=== PATIENT | female | born 1940 | race Caucasian/White ===

== ENCOUNTER 2020-01-11 14:31 | Emergency (ER) | payer MEDICARE, OTHER ==
[2020-01-11 15:24] LABS: BASOPHILS % (AUTO) 0.6 %; EOSINOPHILS # (AUTO) 0.4 10^3/uL (0.0-0.7); EOSINOPHILS % (AUTO) 6.6 %; HGB - HEMOGLOBIN 12.7 g/dL (12.0-16.0); LYMPHOCYTES # (AUTO) 2.4 10^3/uL (1.5-3.5); LYMPHOCYTES % (AUTO) 37.3 %; MEAN CORPUSCULAR HEMOGLOBIN 29.1 pg (27.0-31.0); MEAN CORPUSCULAR HGB CONC 32.7 g/dL (32.0-36.0); MEAN CORPUSCULAR VOLUME 88.8 fL (81.0-99.0); MEAN PLATELET VOLUME 9.3 fL (7.9-10.8); MONOCYTES # (AUTO) 0.6 10^3/uL (0.0-1.0); MONOCYTES % (AUTO) 8.9 %; NEUTROPHILS % (AUTO) 46.4 %; PLT - PLATELET COUNT 254 10^3/uL (130-450); RED BLOOD COUNT 4.37 10^6/uL (4.20-5.40); RED CELL DISTRIBUTION WIDTH 14.2 % (12.0-15.0); WHITE BLOOD COUNT 6.4 x10^3/uL (4.8-10.8)
[2020-01-11 15:44] LABS: ALBUMIN 4.1 g/dL (3.2-5.5); ALBUMIN/GLOBULIN RATIO 1.3 (1.0-2.2); CALCIUM 8.7 mg/dL (8.5-10.3); CREATININE 1.1 mg/dL (0.4-1.0); MAGNESIUM 2.1 mg/dL (1.7-2.8); PHOSPHORUS 3.9 mg/dL (2.5-4.6); TOTAL PROTEIN 7.3 g/dL (6.7-8.2)
[2020-01-11] MEDS ORDERED: CARBAMIDE PEROXIDE 6.5% OTIC DROPS LEFTEAR STA (15:50)
[2020-01-11 15:59] LABS: THYROID STIMULATING HORMONE 2.51 uIU/mL (0.34-5.60)
--- NOTE | 2020-01-11 17:20 | ED Physician Documentation ---
PD HPI FOCAL NEURO - Stated complaint Stated Complaint: STROKE LIKE SYMPTOMS - Chief complaint Chief Complaint: General - History obtained from History obtained from: Patient - History of Present Illness Timing - onset: Today (patient went to walk in clinic in [place] due to complaint of left ear plugging and discomfort. provider there concerned about some facial drooping on left and noted BP elevated, so referred her to ER for evaluation. Patient did not feel that she had facial nor extremity weakness nor her SO.) Timing - duration: Days (1-2 days of left ear feeling plugged/pressure.) Timing - details: Gradual onset Severity of deficit: Mild Weakness: No: Face, Arm, Leg Numbness: No: Face, Arm, Leg Associated symptoms: No: Headache, Nausea / vomiting, Fall, Head injury Contributing factors: negative: Anticoagulated, Vascular dz, Atrial fibrillation Baseline status: positive: A&OX3, ambulatory, indep Similar symptoms before: Has not had sx before Recently seen: Clinic (today [employer], and referred to ER.) Review of Systems Constitutional: denies: Fever, Chills Ears: reports: Loss of hearing. denies: Drainage/discharge Nose: denies: Rhinorrhea / runny nose, Congestion Throat: denies: Sore throat Cardiac: denies: Chest pain / pressure Respiratory: denies: Dyspnea, Cough GI: denies: Nausea, Vomiting, Diarrhea Musculoskeletal: denies: Neck pain, Back pain Neurologic: reports: Other (left arm with resting tremor for months; is lessens with activity or if she concentrates, otherwise regular tremoring at rest. Only the left arm/hand.). denies: Focal weakness, Numbness, Confused, Altered mental status, Headache Endocrine: denies: Weight loss Immunocompromised: reports: Chemotherapy (Pamela for arthritis). denies: Immunocompromised PD PAST MEDICAL HISTORY - Past Medical History Past Medical History: Yes Respiratory: None Neuro: Other (left arm tremoring at rest for many months. ) Endocrine/Autoimmune: None Psych: Depression Musculoskeletal: Rheumatoid arthritis - Allergies Allergies/Adverse Reactions: Allergies Allergy/AdvReac Type Severity Reaction Status Date / Time Sulfa (Sulfonamide Allergy Unknown Verified 01/11/20 14:42 Antibiotics) - Living Situation Living Situation: reports: With spouse/s.o. Living Arrangement: reports: At home - Social History Does the pt smoke?: No Does the pt drink ETOH?: No Does the pt have substance abuse?: No - Family History Family history: reports: Non contributory PD ED PE NORMAL - Vitals Vital signs reviewed: Yes - General General: Alert and oriented X 3, No acute distress, Well developed/nourished - HEENT HEENT: PERRL, EOMI, Pharynx benign, Other (I do not appreciate a facial droop and she can puff cheeks well and strongly. ). No: Ears normal (right is normal. Left with earwax occluding the canal. Repeat view of ear after nursing irrigation of it, showed normal canal and TM. She can hear better. ) - Neck Neck: Supple, no meningeal sign, No adenopathy, No bruit - Cardiac Cardiac: RRR - Respiratory Respiratory: Clear bilaterally - Abdomen Abdomen: Soft, Non tender - Back Back: No CVA TTP - Derm Derm: Normal color, Warm and dry - Extremities Extremities: No edema, No calf tenderness / cord, Other (left arm/hand with moderate tremoring that decreases/stops when she actively uses it or thinks about holding it still. No edema. ) - Neuro Neuro: Alert and oriented X 3, roaster helper 2-12 intact, No motor deficit, No sensory deficit, Normal speech Eye Opening: Spontaneous Motor: Obeys Commands Verbal: Oriented GCS Score: 15 NIHSS - Level of Consciousness Level of consciousness: (0) Alert, Keenly responsive LOC Questions: (0) Answers both Q's correct LOC Commands: (0) Performs both correctly - Gaze Best Gaze: (0) Normal - Visual Visual: (0) No loss - Facial Palsy Facial Palsy: (0) Normal, symmetrical movement - Motor Arms (both separate) Motor Arm (right): (0) No drift Motor Arm (left): (0) No drift - Motor Legs (both separate) Motor Leg (right): (0) No drift Motor Leg (left): (0) No drift - Limb Ataxia Limb Ataxia: (0) Absent - Sensory Sensory: (0) Normal - Best Language Best Language: (0) No aphasia - Dysarthria Dysarthria: (0) Normal - Extinction and Inattention (formally neg Extinction and inattention: (0) No abnormality - Total Score/Results Total Score/Result: 0 Results - Vitals Vitals: Vital Signs - 24 hr 01/11/20 01/11/20 14:42 17:37 Temperature 36.5 C 37.2 C Heart Rate 74 84 Respiratory 18 16 Rate Blood Pressure 153/110 H 154/98 H O2 Saturation 98 99 Oxygen O2 Source Room air - Labs Labs: Laboratory Tests 01/11/20 01/11/20 01/11/20 14:38 15:17 15:17 WBC 6.4 RBC 4.37 Hgb 12.7 Hct 38.8 MCV 88.8 MCH 29.1 MCHC 32.7 RDW 14.2 Plt Count 254 MPV 9.3 Neut # (Auto) 3.0 Lymph # (Auto) 2.4 [place] # (Auto) 0.6 Eos # (Auto) 0.4 Baso # (Auto) 0.0 Absolute Nucleated RBC 0.00 Nucleated RBC % 0.0 Sodium 138 Potassium 3.8 Chloride 101 Carbon Dioxide 27 Anion Gap 10.0 BUN 15 Creatinine 1.1 H Estimated GFR (MDRD) 48 L Glucose 95 POC Whole Bld Glucose 93 Calcium 8.7 Phosphorus 3.9 Magnesium 2.1 Total Bilirubin 1.0 AST 17 ALT 14 Alkaline Phosphatase 46 Total Protein 7.3 Albumin 4.1 Globulin 3.2 Albumin/Globulin Ratio 1.3 Lipase 49 Vitamin B12 TSH 01/11/20 15:17 WBC RBC Hgb Hct MCV MCH MCHC RDW Plt Count MPV Neut # (Auto) Lymph # (Auto) [place] # (Auto) Eos # (Auto) Baso # (Auto) Absolute Nucleated RBC Nucleated RBC % Sodium Potassium Chloride Carbon Dioxide Anion Gap BUN Creatinine Estimated GFR (MDRD) Glucose POC Whole Bld Glucose Calcium Phosphorus Magnesium Total Bilirubin AST ALT Alkaline Phosphatase Total Protein Albumin Globulin Albumin/Globulin Ratio Lipase Vitamin B12 231 TSH 2.51 PD MEDICAL DECISION MAKING - ED course Complexity details: considered differential (I do not see facial weakness here and her SO did not notice it here nor at clinic earlier.), d/w patient ED course: not clear the cause of arm tremor she has had for months. Consider med side effect from SSRI. Or just essential tremor. Or other cause. Basic lytes are good. I do not note facial droop here nor other weakness. Will defer work up. To see if she develops some facial weakness in next 1-2 days, to consider Benites Palsy or such. Departure - Departure Disposition: 01 Home, Self Care Clinical Impression: Tremor Cerumen impaction Qualifiers: Laterality: left Qualified Code(s): H61.22 - Impacted cerumen, left ear Condition: Stable Record reviewed to determine appropriate education?: Yes Follow-Up: Kash Lopez PA-C [Primary Care Provider] - Comments: Your basic blood tests appear normal here. I have included copies of your results. Follow-up with your primary care regarding any further evaluation of the arm tremor. It may possibly be a side effect of your antidepressant medicine but hard to say for sure. Regarding the face, see if there is any progressive weakness that develops over the next day or 2 that might suggest a Benites's palsy. At this point no acute intervention. Discharge Date/Time: 01/11/20 17:37
[2020-01-11 17:37] VITALS: BP 154/98
== END 2020-01-11 17:37 | disposition home or self-care (01) ==
LOC: ED 14:31
DX: H61.22 Impacted cerumen, left ear (principal); R25.1 Tremor, unspecified; I49.1 Atrial premature depolarization; R03.0 Elevated blood-pressure reading, without diagnosis of hypertension
CPT/HCPCS: 36415; 80053; 82607; 83690; 83735; 84100; 84443; 85025; 99283; 99284

== ENCOUNTER 2021-01-24 08:00 | Outpatient (CLI) | payer MEDICARE, OTHER ==
--- NOTE | 2021-01-24 16:54 | XRAY Report ---
PROCEDURE: Tib/Fib LT INDICATIONS: CONTUSION OF LEFT LOWER LEG TECHNIQUE: 2 views of the tibia and fibula were acquired. COMPARISON: None FINDINGS: Bones: No fractures or dislocations. No suspicious bony lesions. Soft tissues: No suspicious soft tissue calcifications or masses. IMPRESSION: Normal left tibia and fibula. Reviewed by: Je Sandy on 01/24/2021 4:52 PM PDT Approved by: Je Sandy on 01/24/2021 4:52 PM PDT Station ID: [id number]
[2021-01-24 20:08] LABS: BASOPHILS # (AUTO) 0.1 10^3/uL (0.0-0.1); EOSINOPHILS # (AUTO) 0.4 10^3/uL (0.0-0.7); EOSINOPHILS % (AUTO) 5.6 %; HGB - HEMOGLOBIN 11.2 g/dL (12.0-16.0); LYMPHOCYTES # (AUTO) 2.6 10^3/uL (1.5-3.5); LYMPHOCYTES % (AUTO) 35.5 %; MEAN CORPUSCULAR HEMOGLOBIN 28.9 pg (27.0-31.0); MEAN CORPUSCULAR VOLUME 90.4 fL (81.0-99.0); MEAN PLATELET VOLUME 10.7 fL (7.9-10.8); MONOCYTES # (AUTO) 0.7 10^3/uL (0.0-1.0); MONOCYTES % (AUTO) 9.6 %; NEUTROPHILS # (AUTO) 3.5 10^3/uL (1.5-6.6); PLT - PLATELET COUNT 295 10^3/uL (130-450); RED BLOOD COUNT 3.87 10^6/uL (4.20-5.40); RED CELL DISTRIBUTION WIDTH 13.8 % (12.0-15.0); WHITE BLOOD COUNT 7.3 x10^3/uL (4.8-10.8)
[2021-01-24 20:19] LABS: CALCIUM 9.1 mg/dL (8.5-10.3); POTASSIUM 3.8 mmol/L (3.5-5.0)
== END 2021-01-24 23:59 | disposition home or self-care (01) ==
LOC: DI.S 08:00
PROVIDERS: ATTEND Emergency Medicine
DX: S80.12XA Contusion of left lower leg, initial encounter (principal); R60.0 Localized edema
CPT/HCPCS: 36415; 80048; 85025; 85379

== ENCOUNTER 2021-01-26 11:33 | Outpatient (CLI) | payer MEDICARE, OTHER ==
--- NOTE | 2021-01-26 13:37 | Ultrasound Report ---
PROCEDURE: Duplex Ext Veins Left INDICATIONS: EDEMA OF CALF TECHNIQUE: Real-time imaging, as well as color and pulse Doppler interrogation, were performed of the lower extr emity deep veins from the inguinal ligament to the popliteal fossa. COMPARISON: None. FINDINGS: The deep veins are normally compressible, and free of intraluminal thrombus. Color and pu lse Doppler demonstrate normal phasic intraluminal flow. There is normal augmentation response to di stal compression maneuver. IMPRESSION: No deep venous thrombosis. Reviewed by: Flores Chase MD on 01/26/2021 1:35 PM PDT Approved by: Flores Chase MD on 01/26/2021 1:35 PM PDT Station ID: [id number]
== END 2021-01-26 11:34 | disposition home or self-care (01) ==
LOC: DI 11:33
PROVIDERS: ATTEND Emergency Medicine
DX: S80.12XA Contusion of left lower leg, initial encounter (principal); R60.0 Localized edema

== ENCOUNTER 2021-02-27 10:45 | Outpatient (CLI) | payer MEDICARE, OTHER | END 2021-02-27 10:46 | disposition home or self-care (01) | LOC: LAB.S 10:45 | PROVIDERS: ATTEND Internal Medicine | DX: R60.0 Localized edema (principal) | CPT/HCPCS: 36415; 83880; 85379; 85651 ==

== ENCOUNTER 2021-03-17 11:04 | Outpatient (CLI) | payer MEDICARE, OTHER ==
--- NOTE | 2021-03-17 12:47 | Ultrasound Report ---
PROCEDURE: Abdomen Complete INDICATIONS: ABD BLOATING TECHNIQUE: Real-time scanning was performed of the abdominal and retroperitoneal organs, with image documentatio n. COMPARISON: None. FINDINGS: Liver: Liver is normal in size and homogeneous in echotexture. Gallbladder: Unremarkable. Biliary ducts: Intrahepatic bile ducts are non-dilated. Common bile duct measures 3 mm, within yenny l limits. Pancreas: Visualized portions of the pancreas are sonographically normal. Spleen: Spleen is normal in size and homogeneous in echotexture. Kidneys: Kidneys are normal in size and echotexture. Right kidney measures 8.9 cm long; left kidney measures 9.8 cm long. No hydronephrosis or nephrolithiasis. No solid masses. Right renal cortical thickness of 9 mm. Left renal cortical thickness of 9 mm. Aorta: Visualized aorta is normal in caliber at less than 3 cm. Calcific atherosclerosis seen throu ghout the visualized aorta. Iliacs: Proximal common iliac arteries are normal in caliber at less than 2.5 cm. IVC: Intrahepatic inferior vena cava is patent. Miscellaneous: No free abdominal fluid. IMPRESSION: 1. No acute intra-abdominal abnormality. 2. Mild atrophic changes of the kidneys. Reviewed by: Benedicto Youngblood on 03/17/2021 11:46 AM [facility] Approved by: Benedicto Youngblood on 03/17/2021 11:46 AM [facility] Station ID: [id number]
== END 2021-03-17 11:05 | disposition home or self-care (01) ==
LOC: DI 11:04
PROVIDERS: ATTEND Internal Medicine
DX: R14.0 Abdominal distension (gaseous) (principal); N26.1 Atrophy of kidney (terminal)

== ENCOUNTER 2021-03-28 14:52 | Outpatient (CLI) | payer MEDICARE, OTHER ==
[2021-03-28 20:32] LABS: CREATININE 1.3 mg/dL (0.4-1.0)
== END 2021-03-28 14:53 | disposition home or self-care (01) ==
LOC: LAB.S 14:52
PROVIDERS: ATTEND Internal Medicine
DX: R14.0 Abdominal distension (gaseous) (principal); R60.0 Localized edema
CPT/HCPCS: 36415; 82565

== ENCOUNTER 2021-04-04 13:47 | Outpatient (CLI) | payer MEDICARE, OTHER ==
[2021-04-04] MEDS ORDERED: IOPAMIDOL-300 100 ML VIAL ONE (14:08)
[2021-04-04] MEDS ORDERED: IOVERSOL 320 50 ML VIAL ONE (14:08)
--- NOTE | 2021-04-04 16:46 | CT Report ---
PROCEDURE: Abdomen/Pelvis W INDICATIONS: ABDOMINAL BLOATING CONTRAST: IV CONTRAST: Isovue 300 ml: 100 PO CONTRAST: Optiray 320 ml50 TECHNIQUE: After the administration of IV and oral contrast, 5 mm thick sections acquired from the diaphragms to the symphysis. 5 mm thick coronal and sagittal reformats were acquired. For radiation dose reducti on, the following was used: automated exposure control, adjustment of mA and/or kV according to sukh ent size. COMPARISON: Abdominal ultrasound dated 03/17/2021. FINDINGS: Image quality: Excellent. ABDOMEN: Lung bases: Bibasilar scarring/atelectasis are seen Heart size is normal. Solid organs: Liver and spleen are normal in size and enhancement. Gallbladder is within normal cavazos its Biliary system is non dilated. Pancreas enhances normally. No adrenal nodules. Kidneys demons trate normal size and enhancement, without hydronephrosis. Peritoneum and bowel: Bowel loops demonstrate normal wall thickness and caliber. No free fluid or a ir. Mild fecal stasis in the colon is seen. Appendix is visualized and is within normal limits. Nodes and vessels: No retroperitoneal or mesenteric adenopathy by size criteria. Aorta and inferior vena cava are normal in size. Mild to moderate atherosclerotic calcifications in the abdominal aort a is seen. Miscellaneous: No ventral hernias. PELVIS: Genitourinary: Bladder wall thickness is normal. Miscellaneous: No inguinal hernias or adenopathy. Densely calcified structure involving left lower pelvis is seen with mild mass effect on distal sigmoid colon and rectum and measures 4.4 x 3.1 x 3.3 cm in size and likely represented densely calcified uterine fibroid. Bones: No suspicious bony lesions. No vertebral body compression fractures. Minimal anterolisthesi s at L4-5 and L5-S1 levels are seen. Degenerative disc disease throughout lower thoracic and lumbar s pine is seen. IMPRESSION: 1. No bowel obstruction or abnormal bowel wall thickening. Normal appendix. Mild constipation. No preethi e fluid of free air. 2. Suggestion of densely calcified uterine fibroid. 3. No renal stone or hydronephrosis. Reviewed by: Mauricio Stratton MD on 04/04/2021 4:45 PM PDT Approved by: Mauricio Stratton MD on 04/04/2021 4:45 PM PDT Station ID: [id number]
[2021-04-04] MEDS ORDERED: IOPAMIDOL-300 100 ML VIAL IVP ONE (21:29)
[2021-04-04] MEDS ORDERED: IOVERSOL 320 50 ML VIAL PO ONE (21:29)
== END 2021-04-04 13:48 | disposition home or self-care (01) ==
LOC: DI 13:47
PROVIDERS: ATTEND Internal Medicine
DX: R14.0 Abdominal distension (gaseous) (principal); K59.00 Constipation, unspecified
CPT/HCPCS: 74177; Q9967

== ENCOUNTER 2022-07-03 09:13 | Outpatient (CLI) | payer MEDICARE, OTHER ==
[2022-07-03 14:21] LABS: BASOPHILS # (AUTO) 0.1 10^3/uL (0.0-0.1); BASOPHILS % (AUTO) 1.1 %; EOSINOPHILS # (AUTO) 0.4 10^3/uL (0.0-0.7); EOSINOPHILS % (AUTO) 4.4 %; HCT - HEMATOCRIT 39.9 % (37.0-47.0); HGB - HEMOGLOBIN 12.2 g/dL (12.0-16.0); LYMPHOCYTES % (AUTO) 37.4 %; MEAN CORPUSCULAR HEMOGLOBIN 28.4 pg (27.0-31.0); MEAN CORPUSCULAR HGB CONC 30.6 g/dL (32.0-36.0); MEAN CORPUSCULAR VOLUME 92.8 fL (81.0-99.0); MEAN PLATELET VOLUME 10.4 fL (7.9-10.8); MONOCYTES # (AUTO) 0.8 10^3/uL (0.0-1.0); MONOCYTES % (AUTO) 9.5 %; NEUTROPHILS # (AUTO) 3.8 10^3/uL (1.5-6.6); NEUTROPHILS % (AUTO) 47.3 %; PLT - PLATELET COUNT 326 10^3/uL (130-450); RED CELL DISTRIBUTION WIDTH 13.2 % (12.0-15.0)
[2022-07-03 14:45] LABS: ALBUMIN 3.7 g/dL (3.2-5.5); ALKALINE PHOSPHATASE 120 IU/L (42-121); ALT ALANINE AMINOTRANSFERASE < 10 IU/L (10-60); AST ASPARTATE AMINOTRANSFERASE 16 IU/L (10-42); BILIRUBIN,TOTAL 0.6 mg/dL (0.2-1.0); BUN - BLOOD UREA NITROGEN 23 mg/dL (6-20); CALCIUM 9.1 mg/dL (8.5-10.3); CARBON DIOXIDE - CO2 28 mmol/L (21-32); CHLORIDE 103 mmol/L (101-111); CREATININE 1.1 mg/dL (0.4-1.0); GFR - MDRD 48 (>89); GLUCOSE 102 mg/dL (70-100); POTASSIUM 3.8 mmol/L (3.5-5.0); SODIUM 138 mmol/L (135-145); TOTAL PROTEIN 7.5 g/dL (6.7-8.2)
[2022-07-03 15:00] LABS: CRP - C-REACTIVE PROTEIN < 1.0 mg/dL (0-1.0)
== END 2022-07-03 09:14 | disposition home or self-care (01) ==
LOC: LAB.S 09:13
PROVIDERS: ATTEND Internal Medicine Rheumatology
DX: M85.80 Other specified disorders of bone density and structure, unspecified site (principal)
CPT/HCPCS: 36415; 80053; 85025; 85651; 86140

== ENCOUNTER 2022-08-13 12:35 | Outpatient (CLI) | payer MEDICARE, OTHER ==
--- NOTE | 2022-08-13 16:32 | CT Report ---
PROCEDURE: LUMBAR SPINE WO INDICATIONS: ABN XRAY TECHNIQUE: Noncontrast 3 mm thick sections acquired from the T12 level to the sacrum. Sagittal and coronal refo rmats were constructed. For radiation dose reduction, the following was used: automated exposure co ntrol, adjustment of mA and/or kV according to patient size. COMPARISON: Correlation is made with prior abdomen pelvis CT, 04/04/2021. FINDINGS: Image quality: Excellent. Bones: No acute vertebral body compression fractures. No suspicious lytic or blastic bony lesions. Central spinal caliber is of normal overall caliber. No pars defects. Mild dextroconvex scoliotic curvature is seen. Minimal retrolisthesis is seen at L1-L2. T12-L1: Normal in appearance. L1-L2: Moderate loss of disc height is seen. Mild to moderate disc bulge is seen. Vacuum disc phe nomenon is seen at this level. There is at least moderate bilateral neuroforaminal narrowing seen. N o significant central canal narrowing is seen. L2-L3: Minimal loss of disc height is seen. Moderate disc bulge is seen, with a central disc protr usion. There is at least moderate bilateral neuroforaminal narrowing seen. At least moderate central canal narrowing is seen. L3-L4: Moderate loss of disc height is seen. At least moderate disc bulge is seen, with a central d isc protrusion. Mild vacuum disc phenomenon is seen. Mild to moderate facet hypertrophy is seen. Ther e is moderate right-sided and moderate to severe left-sided neuroforaminal narrowing. At least modera te central canal narrowing is seen, as on series 3 image 46. L4-L5: Moderate loss of disc height is seen. Mild to moderate disc bulge is seen. A superimposed ce ntral disc protrusion is seen. There is at least moderate facet hypertrophy. There is at least moder ate bilateral neuroforaminal narrowing seen. There is moderate central canal narrowing is seen, as on series 3 image 54. L5-S1: The disc height is relatively well preserved. Mild disc bulge is seen. Moderate facet hy pertrophy is seen. There is moderate right-sided and mild to moderate left-sided neuroforaminal narr owing. Mild to moderate central canal narrowing can be seen. Soft tissues: No retroperitoneal hematomas. Visualized aorta is normal in caliber. Atherosclerotic calcification is seen. A calcified lesion is again seen within the presacral region, which is attrib uted to a calcified uterine fibroid. Minimal distal colonic diverticulosis is seen, without active di verticulitis. IMPRESSION: Multiple levels of relatively prominent lumbar spine degenerative change can be seen. If it would be helpful for clinical management decision making, please consider a dedicated, schedule d lumbar MRI for further evaluation (assuming that there is no contraindication). Additional findings: Apparent calcified uterine fibroid Diverticulosis, without findings of active diverticulitis. Reviewed by: Evaristo Olivarez MD on 08/13/2022 3:30 PM [place] Approved by: Evaristo Olivarez MD on 08/13/2022 3:30 PM [facility] Station ID: [id number]
== END 2022-08-13 12:36 | disposition home or self-care (01) ==
LOC: DI 12:35
PROVIDERS: ATTEND Physician Assistant
DX: R93.7 Abnormal findings on diagnostic imaging of other parts of musculoskeletal system (principal); M47.816 Spondylosis without myelopathy or radiculopathy, lumbar region

== ENCOUNTER 2022-10-17 12:31 | Outpatient (CLI) | payer MEDICARE, OTHER ==
--- NOTE | 2022-10-17 16:11 | MRI Report ---
PROCEDURE: LUMBAR SPINE WO INDICATIONS: MONOPARESIS OF LOWER LIMB TECHNIQUE: Noncontrast sagittal T1 spin echo and T2 fast echo, sagittal STIR, axial T1 and T2 fast spin echo thr ough the lumbar spine. In cases with scoliosis, additional coronal T2 fast spin echo may be performe d. COMPARISON: None. FINDINGS: Image quality: Excellent. Alignment and Curvature: There is normal bony alignment. Bone Marrow: There is marrow edema present across the sacrum and a buckle fracture involving S2. Imag ing findings are consistent with a sacral insufficiency fracture. Clinical correlation is recommended . Spinal Cord: Conus medullaris terminates at the T12 level. Visualized cord demonstrates normal sign al and size. Paraspinous Soft Tissues: There is a 4.1 cm ovoid benign-appearing lipoma involving the subcutaneous tissues of the lower back. T12-L1: There is a mild diffuse disc bulge present. No significant central canal or neural foraminal stenosis. L1-L2: There is a mild diffuse disc bulge present causing some mild to moderate bilateral neural f oraminal stenosis. No central canal stenosis. L2-L3: There is a mild diffuse disc bulge present. This in conjunction with ligamentum flavum lynch ling and bilateral facet degenerative change causes a moderate degree of central canal stenosis. Ther e is also moderate to severe bilateral neural foraminal stenosis. L3-L4: There is a mild diffuse disc bulge present. There is moderate to severe bilateral neural for aminal stenosis and moderate central canal stenosis multifactorial origin. L4-L5: There is a [id number] size broad-based disc protrusion present. This causes moderate to severe bilateral neural foraminal stenosis and severe central canal stenosis multifactorial origin . L5-S1: There is a mild diffuse disc bulge present causing some moderate bilateral neural foraminal stenosis. No central canal stenosis. IMPRESSION: 1. Findings consistent with sacral insufficiency fracture with a buckle through the S2 segment and ma rrow edema throughout the sacrum. 2. Significant degenerative changes noted throughout the patient's lumbar spine as described above on a level by level basis with the L4-L5 level being most severely affected. 3. 4.1 cm benign-appearing lipoma in the subcutaneous tissues of the lower back to the left of midlin e. Reviewed by: Josh Church MD on 10/17/2022 4:09 PM PDT Approved by: Josh Church MD on 10/17/2022 4:09 PM PDT Station ID: [id number]
== END 2022-10-17 12:32 | disposition home or self-care (01) ==
LOC: DI 12:31
PROVIDERS: ATTEND Physician Assistant
DX: G83.11 Monoplegia of lower limb affecting right dominant side (principal); R93.7 Abnormal findings on diagnostic imaging of other parts of musculoskeletal system; D17.39 Benign lipomatous neoplasm of skin and subcutaneous tissue of other sites; M51.35 Other intervertebral disc degeneration, thoracolumbar region; M51.36 Other intervertebral disc degeneration, lumbar region; M48.061 Spinal stenosis, lumbar region without neurogenic claudication; M47.816 Spondylosis without myelopathy or radiculopathy, lumbar region; M51.37 Other intervertebral disc degeneration, lumbosacral region

== ENCOUNTER 2023-04-25 14:22 | Outpatient (CLI) | payer MEDICARE, OTHER ==
--- NOTE | 2023-04-25 16:46 | XRAY Report ---
PROCEDURE: Hips 2V BILAT INDICATIONS: STRESS FRACTURE TECHNIQUE: One view of the pelvis and one view of each hip is obtained. COMPARISON: None. FINDINGS: Bones: No fractures or dislocations. No suspicious bony lesions. Mild periarticular osteophyte fo rmation at the bilateral hip joints. Soft tissues: Calcification within the right pelvis spanning roughly 45 mm, consistent with uterine fibroid. IMPRESSION: 1. Bilateral hip osteoarthritis. 2. Uterine fibroid. 3. No acute fracture. No osseous lesion. If symptoms and/or clinical suspicion for pathology continue , further assessment with repeat plain films, or advanced imaging (e.g., CT, MRI, or bone scan) is re commended for further assessment. Reviewed by: Stephan Donaldson MD on 04/25/2023 4:44 PM PDT Approved by: Stephan Donaldson MD on 04/25/2023 4:44 PM PDT Station ID: [id number]
== END 2023-04-25 14:23 | disposition home or self-care (01) ==
LOC: DI.S 14:22
PROVIDERS: ATTEND Internal Medicine
DX: M84.359A Stress fracture, hip, unspecified, initial encounter for fracture (principal); M16.0 Bilateral primary osteoarthritis of hip; D25.9 Leiomyoma of uterus, unspecified

== ENCOUNTER 2023-08-13 11:42 | Outpatient (CLI) | payer MEDICARE, OTHER ==
--- NOTE | 2023-08-13 17:16 | XRAY Report ---
PROCEDURE: Ankle 3+V LT INDICATIONS: LEG EDEMA,LEFT TECHNIQUE: 3 views of the ankle were acquired. COMPARISON: None. FINDINGS: Bones: No fractures or dislocations. Ankle mortise is normally aligned. Mild midfoot and hindfoot joint osteophytic changes are seen. Well-defined plantar and dorsal calcaneal enthesophytes are seen. No suspicious bony lesions. Soft tissues: No tibiotalar joint effusion. Achilles tendon appears normal. IMPRESSION: No acute bony abnormality. Ankle mortise is congruent. Calcaneal enthesophyte. Mild midfoot and hindfoot joint osteoarthritis. Reviewed by: Mauricio Stratton MD on 08/13/2023 5:15 PM PST Approved by: Mauricio Stratton MD on 08/13/2023 5:15 PM PST Station ID: [id number]
--- NOTE | 2023-08-13 17:38 | XRAY Report ---
PROCEDURE: Foot 3+V LT INDICATIONS: LEG EDEMA,LEFT TECHNIQUE: 4 views of the foot were acquired. COMPARISON: None. FINDINGS: Bones: No fractures or dislocations. Moderate hallux valgus is seen. Lateral subluxation at third MT P joint is also noted. Osteoarthritic changes are noted throughout left foot most notably at first MT P joint. Well-defined plantar calcaneal enthesophyte is also seen. No gross bony erosive changes. No suspicious bony lesions. Soft tissues: No suspicious soft tissue calcifications or masses. IMPRESSION: Hallux valgus and lateral deviation at third MTP joint as above. No fracture or dislocation. No radio graphic evidence of osteomyelitis. Osteoarthritic changes throughout left foot. Calcaneal enthesophyt e. Reviewed by: Mauricio Stratton MD on 08/13/2023 5:37 PM PST Approved by: Mauricio Stratton MD on 08/13/2023 5:37 PM PST Station ID: [id number]
== END 2023-08-13 11:43 | disposition home or self-care (01) ==
LOC: DI.S 11:42
PROVIDERS: ATTEND Internal Medicine
DX: R60.0 Localized edema (principal); M20.12 Hallux valgus (acquired), left foot; M19.072 Primary osteoarthritis, left ankle and foot; M77.32 Calcaneal spur, left foot

== ENCOUNTER 2023-08-27 09:22 | Outpatient (CLI) | payer MEDICARE, OTHER ==
[2023-08-27 14:34] LABS: BASOPHILS # (AUTO) 0.1 10^3/uL (0.0-0.1); EOSINOPHILS # (AUTO) 0.4 10^3/uL (0.0-0.7); EOSINOPHILS % (AUTO) 4.8 %; HCT - HEMATOCRIT 39.9 % (37.0-47.0); HGB - HEMOGLOBIN 12.3 g/dL (12.0-16.0); LYMPHOCYTES # (AUTO) 2.4 10^3/uL (1.5-3.5); LYMPHOCYTES % (AUTO) 33.1 %; MEAN CORPUSCULAR HEMOGLOBIN 29.1 pg (27.0-31.0); MEAN CORPUSCULAR HGB CONC 30.8 g/dL (32.0-36.0); MEAN CORPUSCULAR VOLUME 94.5 fL (81.0-99.0); MEAN PLATELET VOLUME 10.9 fL (7.9-10.8); MONOCYTES # (AUTO) 0.6 10^3/uL (0.0-1.0); MONOCYTES % (AUTO) 8.8 %; NEUTROPHILS # (AUTO) 3.8 10^3/uL (1.5-6.6); NEUTROPHILS % (AUTO) 51.9 %; PLT - PLATELET COUNT 264 10^3/uL (130-450); RED BLOOD COUNT 4.22 10^6/uL (4.20-5.40); RED CELL DISTRIBUTION WIDTH 13.3 % (12.0-15.0); WHITE BLOOD COUNT 7.3 x10^3/uL (4.8-10.8)
[2023-08-27 15:39] LABS: ALBUMIN 4.1 g/dL (3.2-5.5); ALBUMIN/GLOBULIN RATIO 1.3 (1.0-2.2); ALKALINE PHOSPHATASE 56 IU/L (42-121); ALT ALANINE AMINOTRANSFERASE 11 IU/L (10-60); AST ASPARTATE AMINOTRANSFERASE 16 IU/L (10-42); BILIRUBIN,TOTAL 0.5 mg/dL (0.2-1.0); BUN - BLOOD UREA NITROGEN 19 mg/dL (6-20); CALCIUM 9.2 mg/dL (8.5-10.3); CARBON DIOXIDE - CO2 27 mmol/L (21-32); CHLORIDE 105 mmol/L (101-111); CRP - C-REACTIVE PROTEIN < 0.5 mg/dL (<0.5); GFR - MDRD 53 (>89); GLUCOSE 94 mg/dL (74-104); POTASSIUM 3.6 mmol/L (3.5-4.5); SODIUM 140 mmol/L (135-145); TOTAL PROTEIN 7.3 g/dL (6.4-8.9)
== END 2023-08-27 09:23 | disposition home or self-care (01) ==
LOC: LAB.S 09:22
PROVIDERS: ATTEND Family Medicine
DX: M06.9 Rheumatoid arthritis, unspecified (principal)
CPT/HCPCS: 36415; 80053; 85025; 85651; 86140

== ENCOUNTER 2024-03-05 08:01 | Outpatient (CLI) | payer MEDICARE, OTHER ==
[2024-03-05 14:49] LABS: HCT - HEMATOCRIT 39.4 % (37.0-47.0); MEAN CORPUSCULAR HEMOGLOBIN 28.4 pg (27.0-31.0); MEAN CORPUSCULAR HGB CONC 30.5 g/dL (32.0-36.0); MEAN CORPUSCULAR VOLUME 93.1 fL (81.0-99.0); MEAN PLATELET VOLUME 10.8 fL (7.9-10.8); RED BLOOD COUNT 4.23 10^6/uL (4.20-5.40); RED CELL DISTRIBUTION WIDTH 13.6 % (12.0-15.0); WHITE BLOOD COUNT 7.1 x10^3/uL (4.8-10.8)
[2024-03-05 16:42] LABS: CRP - C-REACTIVE PROTEIN < 0.5 mg/dL (<0.5)
[2024-03-05 16:45] LABS: THYROID STIMULATING HORMONE 3.02 uIU/mL (0.34-5.60)
[2024-03-05 21:03] LABS: ESTIMATED AVERAGE GLUCOSE 114 mg/dL (70-100); HEMOGLOBIN A1c% 5.6 % (4.27-6.07)
[2024-03-06 07:16] LABS: VITAMIN D 25-HYDROXY 33.7 ng/mL (30.0-100.0)
[2024-03-06 17:08] LABS: CALCIUM IONIZED SERUM 5.3 mg/dL (4.5-5.6)
[2024-03-08 15:08] LABS: CYCLIC CITRULLINATED PEP IGG/A >250 units (0-19)
== END 2024-03-05 08:02 | disposition home or self-care (01) ==
LOC: LAB.S 08:01
PROVIDERS: ATTEND Internal Medicine
DX: M81.0 Age-related osteoporosis without current pathological fracture (principal); M05.69 Rheumatoid arthritis of multiple sites with involvement of other organs and systems
CPT/HCPCS: 36415; 82306; 82330; 83036; 83970; 84439; 84443; 84481; 85027; 85651; 86140; 86200